=== PATIENT | male | born 1955 | race Caucasian/White ===

== ENCOUNTER 2021-11-22 15:41 | Emergency (ER) | payer OTHER, SELFPAY ==
--- NOTE | 2021-11-22 15:43 | ED.SKABFB ---
HPI - Skin/Abscess/Foreign Bdy General Chief complaint: Skin/Abscess/Foreign Body Stated complaint: Inscet Bite Time Seen by Provider: 11/22/21 15:43 Source: patient Mode of arrival: ambulatory Limitations: no limitations History of Present Illness HPI narrative: Mr. Morton is a 66-year-old male patient presenting to the clinic today with a possible insect bite. He reports his eye lids and the right elbow began swelling this morning. States that he thinks he was bitten by bugs. No fever or chills. Patient reports that these rash is itchy and not painful. Related Data Home Medications Medication Instructions Recorded Confirmed haloperidol [Haldol] 11/22/21 11/22/21 Allergies Allergy/AdvReac Type Severity Reaction Status Date / Time No Known Allergies Allergy Verified 11/22/21 16:01 Review of Systems Review of Systems: Pertinent positives per HPI. Patient denies any fever, chills, rash, headache, visual changes, dizziness, cough, runny nose, sore throat, shortness of breath, chest pain, palpitations, nausea, vomiting, diarrhea, constipation, abdominal pain, or any urinary issues. PMFSH Comments At the time of my signature, I reviewed and agree with the nursing past medical, surgical, social, and family history. There is no relevant family history pertinent to the patient complaint. Exam Narrative: General: Well-developed, well nourished, in no apparent distress Head: Normocephalic, atraumatic. Cardio: Regular rate and rhythm, s1 and s2 normal, no murmur appreciated. Resp: Clear to auscultation bilaterally, no rhonchi, rales, wheezing or rubs. Integumentary: [place], warm, and dry, intact without lesion, right periorbital swelling and right lateral and anterior elbow swelling with raised urticaria like non-erythemic rash-patient reports this is itchy and nonpainful. Course Course Emergency Course: Portions of this record may have been created with voice recognition software. Level of Care: Express Care Visit Vital Signs Vital signs: Vital signs reviewed MDM - Skin/Abscess/Foreign Bdy MDM Narrative Medical decision making narrative: At the time of visit patient is resting comfortably on the exam table. Patient has itchy swelling rash to the right side of his face and right elbow that appears to be from an allergic reaction. Rash is itchy with swelling. We will go ahead and give a prescription for prednisone and give a dose of dexamethasone IM in the clinic today. Supportive measures were discussed and patient voiced understanding of discharge instructions Discharge Plan Discharge Clinical Impression: Urticaria Allergic reaction Qualifiers: Encounter type: initial encounter Qualified Code(s): T78.40XA - Allergy, unspecified, initial encounter Patient Disposition: Home, Self-Care Condition: Stable Instructions: Urticaria (ED), Cold Compress or Soak (ED) Additional Instructions: Dexamethasone 10 mg IM given in the clinic today May take 1-2 caps of Benadryl every 6 hours as needed for itching or swelling Cool compresses Avoid hot showers Take prednisone 40 mg by mouth daily x5 days Follow-up with your PCP in 3 to 5 days if symptoms persist or sooner if they worsen Prescriptions: New prednisone 20 mg tablet 40 mg PO DAILY 5 Days Qty: 10 RF: 0 No Action haloperidol [Haldol] 0.5 mg Tablet RF: 0 Follow-up/Referrals: UNKNOWN,DOCTOR [Non-Staff] - Time of Disposition: 16:03 Quality NIHSS Nursing Documentation ED NIHSS nursing documentation: reviewed/agree
[2021-11-22 15:52] VITALS: BP 109/71; PULSE 80; RESP 14; TEMP 37.3; O2SAT 98
--- NOTE | 2021-11-22 16:17 | PC.NURSE ---
Pt unsure of medication dosages. [facility] handles prescriptions, would prefer written copy of prescriptions to give to case packer. COMIC ARTIST aware.
== END 2021-11-22 16:30 | disposition home or self-care (01) ==
PROVIDERS: Emergency Provider Nurse Practitioner Family
DX: L50.9 Urticaria, unspecified (principal); T78.40XA Allergy, unspecified, initial encounter
CPT/HCPCS: 96372; 99213; G0463; J1100